=== PATIENT | male | born 1960 | race Caucasian/White ===

== ENCOUNTER 2016-10-07 07:27 | Outpatient (CLI) | payer MEDICAID | END 2016-10-07 07:28 | disposition critical access hospital (66) | DX: R00.0 Tachycardia, unspecified (principal) | CPT/HCPCS: A0425; A0427 ==

== ENCOUNTER 2016-10-07 08:01 | Observation (INO) | payer MEDICAID ==
[2016-10-07] MEDS ORDERED: ONDANSETRON 4 MG/2 ML VIAL IVP STA ×2 (08:56→13:40)
[2016-10-07] MEDS ORDERED: ONDANSETRON 4 MG/2 ML VIAL ONE ×2 (09:05→13:18)
[2016-10-07] MEDS ORDERED: METOPROLOL 5 MG/5 ML VIAL IVP STA (10:19)
[2016-10-07] MEDS ORDERED: METOPROLOL 5 MG/5 ML VIAL IVP ONE (10:43)
[2016-10-07] MEDS ORDERED: IOPAMIDOL-300 100 ML VIAL IVP ONE (11:19)
[2016-10-07] MEDS ORDERED: AMOX/CLAV 875 MG/125 MG TABLET PO STA (12:17)
[2016-10-07] MEDS ORDERED: AMPICILLIN/SULBACTAM 3 GM in SODIUM CHLORIDE 0.9% MINIBAG 100 ML IV STA (12:26)
[2016-10-07] MEDS ORDERED: SODIUM CHLORIDE 0.9% 1,000 ML IV ONE (12:27)
[2016-10-07] MEDS ORDERED: ACETAMINOPHEN 325 MG TABLET PO STA (13:40)
[2016-10-07] MEDS ORDERED: ACETAMINOPHEN 325 MG TABLET PO ONE (13:57)
[2016-10-07] MEDS ORDERED: HYDROmorphone 1 MG/ML SYRINGE IVP PRN (14:26)
[2016-10-07] MEDS ORDERED: ONDANSETRON ODT 4 MG TABLET TL PRN (14:26)
[2016-10-07] MEDS ORDERED: SODIUM CHLORIDE FLUSH 0.9% 10 ML SYRINGE IVP PRN (14:26)
[2016-10-07] MEDS: SODIUM CHLORIDE 0.9% 1,000 ML IV SCH ×2 (15:13→17:48)
[2016-10-07] MEDS ORDERED: RIVAROXABAN 10 MG TABLET PO SCH (17:30)
[2016-10-07] MEDS: PIPERACILLIN/TAZOBACTAM 3.375 GM in SODIUM CHLORIDE 0.9% MINIBAG 100 ML IV SCH (17:43)
[2016-10-07] MEDS: ACETAMINOPHEN 325 MG TABLET PO PRN (17:50)
[2016-10-07] MEDS ORDERED: ALBUTEROL NEB 2.5 MG/3 ML INH PRN (17:54)
[2016-10-07] MEDS: SODIUM CHLORIDE FLUSH 0.9% 10 ML SYRINGE IVP SCH (19:47)
[2016-10-08] MEDS: PIPERACILLIN/TAZOBACTAM 3.375 GM in SODIUM CHLORIDE 0.9% MINIBAG 100 ML IV SCH ×2 (00:16→05:47)
[2016-10-08] MEDS: ACETAMINOPHEN 325 MG TABLET PO PRN (00:21)
[2016-10-08] MEDS: SODIUM CHLORIDE FLUSH 0.9% 10 ML SYRINGE IVP SCH ×2 (06:39→08:26)
[2016-10-08] MEDS ORDERED: SODIUM CHLORIDE 0.9% 1,000 ML IV SCH (07:00)
[2016-10-08] MEDS ORDERED: POTASSIUM CHLORIDE 10 MEQ CAPSULE PO SCH (08:00)
[2016-10-08] MEDS ORDERED: LISINOPRIL 20 MG TABLET PO SCH (09:00)
[2016-10-08] MEDS ORDERED: MONTELUKAST 10 MG TABLET PO SCH (09:00)
[2016-10-08] MEDS ORDERED: POLYETHYLENE GLYCOL 3350 17 GM PACKET PO SCH (09:00)
[2016-10-08] MEDS ORDERED: METOPROLOL SUCCINATE 50 MG TABLET PO SCH (09:00)
[2016-10-08] MEDS ORDERED: ENOXAPARIN 40 MG/0.4 ML SYRINGE SUBQ SCH (09:00)
== END 2016-10-08 11:00 | disposition home or self-care (01) ==
DX: R10.84 Generalized abdominal pain (principal); K57.32 Diverticulitis of large intestine without perforation or abscess without bleeding; R07.89 Other chest pain; R00.0 Tachycardia, unspecified; I11.0 Hypertensive heart disease with heart failure; I50.22 Chronic systolic (congestive) heart failure; J44.9 Chronic obstructive pulmonary disease, unspecified; I48.2 Chronic atrial fibrillation; R73.9 Hyperglycemia, unspecified; E66.9 Obesity, unspecified; Z79.01 Long term (current) use of anticoagulants; Z68.32 Body mass index [BMI] 32.0-32.9, adult; Z87.891 Personal history of nicotine dependence
CPT/HCPCS: 36415; 71010; 71275; 74177; 80048; 80053; 83690; 83880; 84484; 85025; 93005; 93010; 96361; 96365; 96366; 96367; 96375; 96376; 99284; A9270; G0378; J1170; Q9967

== ENCOUNTER 2021-04-30 12:19 | Emergency (ER) | payer SELFPAY ==
[2021-04-30 12:39] LABS: BASOPHILS % (AUTO) 0.5 %; EOSINOPHILS # (AUTO) 0.1 10^3/uL (0.0-0.7); HCT - HEMATOCRIT 53.4 % (42.0-52.0); HGB - HEMOGLOBIN 17.4 g/dL (14.0-18.0); LYMPHOCYTES # (AUTO) 1.7 10^3/uL (1.5-3.5); LYMPHOCYTES % (AUTO) 21.2 %; MEAN CORPUSCULAR HEMOGLOBIN 30.8 pg (27.0-31.0); MEAN CORPUSCULAR HGB CONC 32.6 g/dL (32.0-36.0); MEAN CORPUSCULAR VOLUME 94.5 fL (80.0-94.0); MONOCYTES # (AUTO) 0.6 10^3/uL (0.0-1.0); NEUTROPHILS # (AUTO) 5.5 10^3/uL (1.5-6.6); NEUTROPHILS % (AUTO) 68.9 %; PLT - PLATELET COUNT 154 10^3/uL (130-450); RED BLOOD COUNT 5.65 10^6/uL (4.70-6.10); RED CELL DISTRIBUTION WIDTH 12.5 % (12.0-15.0)
[2021-04-30 12:56] LABS: ALBUMIN 4.7 g/dL (3.2-5.5); ALBUMIN/GLOBULIN RATIO 1.6 (1.0-2.2); BILIRUBIN,TOTAL 1.5 mg/dL (0.2-1.0); CALCIUM 9.6 mg/dL (8.5-10.3); CREATININE 1.4 mg/dL (0.6-1.2); POTASSIUM 4.2 mmol/L (3.5-5.0); TOTAL PROTEIN 7.7 g/dL (6.7-8.2)
[2021-04-30] MEDS ORDERED: ADENOSINE 6 MG/2 ML VIAL IVP STA ×2 (12:59→13:24)
--- NOTE | 2021-04-30 12:59 | XRAY Report ---
PROCEDURE: Chest 1 View X-Ray INDICATIONS: Chest Pain TECHNIQUE: One view of the chest was acquired. COMPARISON: 10/07/2016 report. Images not available. FINDINGS: Surgical changes and devices: None. Lungs and pleura: No pleural effusions or pneumothorax. Lungs are clear. Mediastinum: Heart size enlarged. Mild underlying vascular congestion present. Bones and chest wall: No suspicious bony lesions. Overlying soft tissues appear unremarkable. Gener alized decreased osseous mineralization present. IMPRESSION: Cardiomegaly and mild vascular congestion. Reviewed by: Sean Cho MD on 04/30/2021 11:58 AM [facility] Approved by: Sean Cho MD on 04/30/2021 11:58 AM [facility] Station ID: [id number]
--- NOTE | 2021-04-30 13:02 | ED Physician Documentation ---
PD HPI CHEST PAIN - Stated complaint Stated Complaint: CHEST PX, L ARM JAW PX - Chief complaint Chief Complaint: Cardiac - History obtained from History obtained from: Patient - History of Present Illness Timing - onset: How many days ago (3) Timing - onset during: Rest Timing - duration: Days (3) Timing - details: Abrupt onset, Still present Quality: Pressure, Tightness Location: Substernal, Left chest Radiation: Left upper extremity Improved by: Rest Worsened by: Exertion, Movement, Position Associated symptoms: Shortness of air, Diaphoresis, Feeling faint / dizzy, Gener al Weakness, Palpitations. No: Nausea, Vomiting, Cough Similar symptoms before: Diagnosis (SVT) Recently seen: Not recently seen - Additional information Additional information: 60-year-old male with a prior history of atrial flutter with rapid ventricular response was had to have cardioversion done previously has developed some exertional dyspnea beginning about 3 days ago and he is feeling of pounding in his chest and some shortness of breath when he is trying to lay flat. He did not have resolution of his symptoms with overnight rest and he is unable to walk even across the room without shortness of breath. He is normally able to ride his bike 15 miles daily without problem. He reports that he has stopped taking his medications more than a month ago and he indicates that he was riding his bike daily felt quite well. This all changed 3 days ago. Review of Systems Constitutional: denies: Fever Eyes: denies: Decreased vision Ears: denies: Ear pain Nose: denies: Congestion Throat: denies: Sore throat Cardiac: reports: Chest pain / pressure, Palpitations. denies: Pedal edema, Calf pain Respiratory: reports: Dyspnea. denies: Cough, Hemoptysis, Wheezing GI: reports: Abdominal Pain. denies: Nausea, Vomiting : denies: Dysuria, Frequency PD PAST MEDICAL HISTORY - Past Medical History Cardiovascular: Congestive heart failure, Hypertension, Atrial fibrillation Respiratory: None Endocrine/Autoimmune: None GI: None : None HEENT: None Psych: None Musculoskeletal: None - Past Surgical History Past Surgical History: No - Present Medications Home Medications: Ambulatory Orders Medication Instructions Recorded Confirmed Fluticasone [Flonase] 2 sprays KAMI DAILY 10/07/16 10/07/16 Furosemide 20 mg PO DAILY 10/07/16 10/07/16 Metoprolol Succinate [Toprol Xl] 100 mg PO DAILY 10/07/16 10/07/16 Montelukast Sodium 10 mg PO DAILY 10/07/16 10/07/16 Potassium Chloride 10 meq PO DAILY 10/07/16 10/07/16 Rivaroxaban [Xarelto] 20 mg PO 1700 10/07/16 10/07/16 Saccharomyces Boulardii [Florastor] 500 mg PO BID #40 capsule 10/07/16 lisinopriL [Zestril] 20 mg PO DAILY 10/07/16 10/07/16 polyethylene glycoL 3350 [Miralax] 17 gm PO DAILY #14 packet 10/07/16 Albuterol Sulfate [Proventil Hfa 2 puffs INH Q4H PRN #1 inhaler 10/08/16 Inhaler] Ciprofloxacin HCl [Cipro] 500 mg PO BID #20 tablet 10/08/16 Digoxin 125 mcg PO DAILY #30 tablet 10/08/16 HYDROcodone/ACET 10/325 [[place] 10 1 each PO Q6H #30 tablet 10/08/16 mg/325 mg] metroNIDAZOLE [Flagyl] 500 mg PO TID #30 tablet 10/08/16 Furosemide [Lasix] 20 mg PO DAILY #10 tablet 04/30/21 Metoprolol Succinate [Toprol Xl] 25 mg PO DAILY #30 tablet 04/30/21 Potassium Chloride [Klor-Con 10] 10 meq PO DAILY #10 tab 04/30/21 Rivaroxaban [Xarelto] 20 mg PO DAILY PM #30 tablet 04/30/21 - Allergies Allergies/Adverse Reactions: Allergies Allergy/AdvReac Type Severity Reaction Status Date / Time No Known Drug Allergies Allergy Verified 01/20/14 07:05 - Social History Does the pt smoke?: No Smoking Status: Former smoker Does the pt drink ETOH?: Yes Does the pt have substance abuse?: No - Immunizations Immunizations are current?: Yes - POLST Patient has POLST: No PD ED PE NORMAL - Vitals Vital signs reviewed: Yes (tachy, tachypneic, and hypertensive) - General General: Alert and oriented X 3, Well developed/nourished, Other (appears tachypneic at rest anxious ) - HEENT HEENT: Atraumatic, PERRL, EOMI - Neck Neck: Supple, no meningeal sign, No bony TTP - Cardiac Cardiac: No murmur, Other (tachycardic rate regular at 140) - Respiratory Respiratory: Clear bilaterally, Other (tachypneic at rest ) - Abdomen Abdomen: Soft, Non tender - Back Back: No CVA TTP, No spinal TTP - Derm Derm: Normal color, Warm and dry, No rash - Extremities Extremities: No deformity, No edema - Neuro Neuro: Alert and oriented X 3, 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, No motor deficit, No sensory deficit, Normal speech Eye Opening: Spontaneous Motor: Obeys Commands Verbal: Oriented GCS Score: 15 - Psych Psych: Normal mood, Normal affect Results - Vitals Vitals: Vital Signs - 24 hr 04/30/21 04/30/21 04/30/21 12:30 13:03 13:30 Temperature 36.4 C L Heart Rate 136 H 122 H 121 H Respiratory 26 H 28 H 32 H Rate Blood Pressure 181/113 H 153/113 H 154/111 H O2 Saturation 99 99 99 04/30/21 04/30/21 04/30/21 14:00 14:30 14:47 Temperature Heart Rate 122 H 122 H 103 H Respiratory 21 18 24 Rate Blood Pressure 149/112 H 129/99 H 132/95 H O2 Saturation 97 98 96 04/30/21 04/30/21 04/30/21 15:00 15:50 16:00 Temperature Heart Rate 97 82 80 Respiratory 21 23 19 Rate Blood Pressure 125/112 H 147/71 H 122/82 H O2 Saturation 95 98 97 04/30/21 04/30/21 04/30/21 16:30 16:43 17:12 Temperature 36.6 C Heart Rate 120 H 89 Respiratory 16 23 Rate Blood Pressure 158/81 H 150/89 H O2 Saturation 98 99 04/30/21 04/30/21 04/30/21 17:30 18:00 18:30 Temperature Heart Rate 102 H 87 92 Respiratory 20 20 16 Rate Blood Pressure 144/80 H 153/73 H 132/78 H O2 Saturation 96 98 97 Oxygen O2 Source Room air - EKG (time done) 1231 Rate: Rate (enter#) (121) Rhythm: Other (ectopic atrial tachycardia) QRS: LVH Ischemia: ST depression (consistent with strain pattern. ) Compare to prior EKG: Changed from prior EKG (SPT 10-17-16 LVH with strain pattern has devloped and the rate is faster. ) Computer interpretation: Agree with computer 1645 Rate: Rate (enter#) (81) Rhythm: Atrial flutter QRS: LVH Ischemia: ST depression (strain pattern with LVH) Compare to prior EKG: Changed from prior EKG (SPT earlier today the rate is decreased and the rhythm is revealded as aflutter. ) Computer interpretation: Agree with computer - Labs Labs: Laboratory Tests 04/30/21 04/30/21 04/30/21 12:31 12:31 12:31 WBC 8.0 RBC 5.65 Hgb 17.4 Hct 53.4 H MCV 94.5 H MCH 30.8 MCHC 32.6 RDW 12.5 Plt Count 154 MPV 11.0 Neut # (Auto) 5.5 Lymph # (Auto) 1.7 Finney # (Auto) 0.6 Eos # (Auto) 0.1 Baso # (Auto) 0.0 Absolute Nucleated RBC 0.00 Nucleated RBC % 0.0 Sodium 138 Potassium 4.2 Chloride 104 Carbon Dioxide 22 Anion Gap 12.0 BUN 18 Creatinine 1.4 H Estimated GFR (MDRD) 51 L Glucose 172 H Calcium 9.6 Total Bilirubin 1.5 H AST 23 ALT 18 Alkaline Phosphatase 44 Troponin I High Sens 39.7 H* B-Natriuretic Peptide Total Protein 7.7 Albumin 4.7 Globulin 3.0 Albumin/Globulin Ratio 1.6 Lipase 31 04/30/21 04/30/21 12:31 15:27 WBC RBC Hgb Hct MCV MCH MCHC RDW Plt Count MPV Neut # (Auto) Lymph # (Auto) Finney # (Auto) Eos # (Auto) Baso # (Auto) Absolute Nucleated RBC Nucleated RBC % Sodium Potassium Chloride Carbon Dioxide Anion Gap BUN Creatinine Estimated GFR (MDRD) Glucose Calcium Total Bilirubin AST ALT Alkaline Phosphatase Troponin I High Sens 32.0 H* B-Natriuretic Peptide 1157 H Total Protein Albumin Globulin Albumin/Globulin Ratio Lipase - Rads (name of study) chest Radiology: Prelim report reviewed (Impression: Cardiomegaly with mild vascular congestion. ), EMP read indepedently, See rad report Procedures - IVC sono (time) 1255 Bedside IVC sono: IVC measures (cm) (2.21), High CVP PD MEDICAL DECISION MAKING - ED course Complexity details: reviewed old records, reviewed results, re-evaluated patient, considered differential, d/w patient ED course: 60-year-old male with a history of atrial flutter having to have cardioversion done has developed atrial flutter again. Today we are unable to transfer the patient to another hospital as there are no beds available. We were able to control the patient's rate with the use of intravenous diltiazem and he did have some evidence of failure on bedside ultrasound examination of the inferior vena cava and his chest x-ray and he was administered 20 mg of Lasix intravenously. He had marked rapid diuresis. He was administered metoprolol succinate [address] Govea cardiology at [facility] in [place] was consulted in the case and recommends rate control with metoprolol XL and anticoagulation with Xarelto and a follow-up as an outpatient for cardioversion. Departure - Departure Disposition: 01 Home, Self Care Clinical Impression: Atrial flutter with rapid ventricular response Heart failure Qualifiers: Heart failure type: unspecified Heart failure chronicity: acute Qualified Code(s): I50.9 - Heart failure, unspecified Instructions: ED Paroxysmal Atrial Flutter Follow-Up: CARLOS GOVEA MD [Physician No Access] - Prescriptions: Potassium Chloride [Klor-Con 10] 10 meq PO DAILY #10 tab Furosemide [Lasix] 20 mg PO DAILY #10 tablet Metoprolol Succinate [Toprol Xl] 25 mg PO DAILY #30 tablet Rivaroxaban [Xarelto] 20 mg PO DAILY PM #30 tablet
[2021-04-30] MEDS ORDERED: ADENOSINE 6 MG/2 ML VIAL IVP ONE (13:24)
[2021-04-30] MEDS ORDERED: diltiaZEM INJ 5 MG/ML VIAL IVP STA ×3 (13:56→18:20)
[2021-04-30] MEDS ORDERED: FUROSEMIDE 20 MG/2 ML VIAL IVP STA (16:23)
[2021-04-30] MEDS ORDERED: METOPROLOL SUCCINATE 25 MG TABLET PO STA (17:26)
[2021-04-30] MEDS ORDERED: RIVAROXABAN 10 MG TABLET PO STA (17:28)
[2021-04-30 18:35] VITALS: BP 132/78
== END 2021-04-30 19:00 | disposition home or self-care (01) ==
LOC: ED 12:19
DX: I11.0 Hypertensive heart disease with heart failure (principal); I48.91 Unspecified atrial fibrillation; Z79.01 Long term (current) use of anticoagulants; Z87.891 Personal history of nicotine dependence
CPT/HCPCS: 36415; 71045; 80053; 83690; 83880; 84484; 85025; 93005; 96374; 96375; 96376; 99284; A9270; J0153